=== PATIENT | female | born 1980 | race Caucasian/White ===

== ENCOUNTER 2020-02-10 09:37 | Outpatient (REF) | payer OTHER, SELFPAY ==
[2020-02-10 10:34] LABS: Estimated Average Glucose 126 mg/dL
[2020-02-10 11:47] LABS: Alanine Aminotransferase 22 U/L (0-31); Albumin Level 4.2 g/dL (3.5-5.0); Alkaline Phosphatase 54 U/L (39-117); Anion Gap 15 (12-20); Aspartate Amino Transferase 17 U/L (5-31); Bilirubin Total 0.4 mg/dL (0.0-1.0); Blood Urea Nitrogen 14 mg/dL (9-16); Carbon Dioxide 24 mmol/L (22-29); Chloride 102 mmol/L (96-108); Cholesterol 183 mg/dL; Estimated Glomerular Filt Rate > 60; Glucose Random 118 mg/dL (60-115); HDL Cholesterol 73 mg/dL; LDL Cholesterol Calculated 83 mg/dl; Potassium 4.4 mmol/l (3.3-5.1); Sodium 137 mmol/L (135-145); Triglycerides 138 mg/dL
== END 2020-02-10 09:38 | disposition home or self-care (01) ==
LOC: HO.LAB 09:37
PROVIDERS: Visit Provider Internal Medicine
DX: R79.89 Other specified abnormal findings of blood chemistry (principal)
CPT/HCPCS: 80053; 80061; 83036; 84443

== ENCOUNTER 2020-06-03 09:36 | Outpatient (REF) | payer OTHER, SELFPAY ==
[2020-06-03 10:29] LABS: MANUAL DIFF FLAG NO
[2020-06-03 10:43] LABS: Basophils Absolute Auto 0.1 X10*3/uL (0.0-0.2); Basophils Percent Auto 0.6 % (0-2); Eosinophils Absolute Auto 0.2 X10*3/uL (0.0-0.4); Eosinophils Percent Auto 2.2 % (0-4); Hematocrit 42.4 % (37-47); Hemoglobin 13.9 g/dl (12.0-16.0); Imm Gran Abs Auto 0.09 X10*3/uL (0.00-0.03); Imm Gran Pct Auto 0.8 % (0.0-0.4); Lymphocytes Absolute Auto 2.8 X10*3/uL (1.2-4.9); Lymphocytes Percent Auto 25.9 % (20-40); Mean Corpuscular HGB Conc 32.8 g/dl (31.0-35.0); Mean Corpuscular Hemoglobin 28.7 pg (27.0-33.0); Mean Corpuscular Volume 87.4 fL (80-98); Mean Platelet Volume 10.8 fL (9.4-12.3); Monocytes Absolute Auto 0.6 X10*3/uL (0.1-1.2); Monocytes Percent Auto 5.3 % (2-11); Neutrophils Absolute Auto 7.1 X10*3/uL (2.0-8.3); Neutrophils Percent Auto 65.2 % (45-73); Platelet Count 344 X10*3/uL (160-400); Red Blood Count 4.85 X10*6/uL (4.20-5.50); Red Cell Distribution Width 12.5 % (11.0-16.0); White Blood Count 10.9 X10*3/uL (4.8-10.8)
[2020-06-03 10:47] LABS: Estimated Average Glucose 143 mg/dL; Hemoglobin A1c % 6.6 %
[2020-06-03 11:15] LABS: Alanine Aminotransferase 23 U/L (0-31); Alkaline Phosphatase 61 U/L (39-117); Anion Gap 14 (12-20); Aspartate Amino Transferase 18 U/L (5-31); Bilirubin Total 0.4 mg/dL (0.0-1.0); Blood Urea Nitrogen 12 mg/dL (9-16); Carbon Dioxide 25 mmol/L (22-29); Chloride 100 mmol/L (96-108); Cholesterol 177 mg/dL; Estimated Glomerular Filt Rate > 60; Glucose Random 116 mg/dL (60-115); HDL Cholesterol 65 mg/dL; LDL Cholesterol Calculated 69 mg/dl; Potassium 4.4 mmol/L (3.3-5.1); Sodium 135 mmol/L (135-145); Total Protein 6.9 g/dL (6.5-8.0); Triglycerides 215 mg/dL
[2020-06-03 11:25] LABS: Thyroid Stimulating Hormone 0.84 uIU/mL (0.32-4.0)
[2020-06-03 11:26] LABS: Creatinine Urine 145.99 mg/dL
== END 2020-06-03 09:37 | disposition home or self-care (01) ==
LOC: HO.LAB 09:36
PROVIDERS: PCP Internal Medicine; Visit Provider Internal Medicine
DX: E11.9 Type 2 diabetes mellitus without complications (principal); G56.02 Carpal tunnel syndrome, left upper limb; J30.0 Vasomotor rhinitis; M25.512 Pain in left shoulder
CPT/HCPCS: 36415; 80053; 80061; 82043; 83036; 84443; 85025; 87086

== ENCOUNTER 2020-07-01 08:51 | Outpatient (REF) | payer OTHER, SELFPAY ==
--- NOTE | 2020-07-01 09:16 | EMG_ITS ---
HISTORY OF PRESENT ILLNESS: This is a 39-year-old woman with a history of diabetes and ADHD, who comes in with 4 month history of left upper extremity numbness and tingling intermittently and some pain. MEDICATIONS: List of medications not available. PHYSICAL EXAMINATION: On examination, she is alert and oriented with normal intellectual functions. Cranial nerves II through XII are normal. Muscle tone and strength are normal in all 4 extremities. No Tinel or Phalen sign. IMPRESSION: Rule out carpal tunnel syndrome, rule out cervical radiculopathy. Nerve conduction EMG study: Normal electrodiagnostic study of the left upper extremity with no evidence of carpal tunnel syndrome or nerve entrapment. Normal EMG of the left C5-T1 innervated muscles. MD EZEKIEL Cuenca/UBALDO / [id number]
== END 2020-07-01 08:52 | disposition home or self-care (01) ==
LOC: HO.NEURO 08:51
PROVIDERS: Visit Provider Internal Medicine
DX: G56.02 Carpal tunnel syndrome, left upper limb (principal)
CPT/HCPCS: 95885; 95910

== ENCOUNTER 2024-03-25 09:40 | Outpatient (REF) | payer OTHER, SELFPAY | END 2024-03-25 09:41 | disposition home or self-care (01) | LOC: HO.SH 09:40 | PROVIDERS: Visit Provider Nurse Practitioner Family | DX: Z01.118 Encounter for examination of ears and hearing with other abnormal findings (principal); H90.3 Sensorineural hearing loss, bilateral | CPT/HCPCS: 92557 ==

== ENCOUNTER 2024-10-03 14:20 | Outpatient (REF) | payer SELFPAY | END 2024-10-03 14:21 | disposition home or self-care (01) | LOC: HO.HAP 14:20 | PROVIDERS: Visit Provider Internal Medicine | DX: Z13.89 Encounter for screening for other disorder (principal) ==

== ENCOUNTER 2024-11-15 10:47 | Outpatient (REF) | payer SELFPAY ==
--- NOTE | 2024-11-15 12:05 | MHC.AU.HA3 ---
Hearing Instrument Follow-Up- Binaural Date of Visit: 11/15/24 Right Ear: Jw, Model, Color, Serial Number: Damion Wilkersoneo L70-R, gómez pink S#[id number] Grading Machine Operator Repair Warranty: 09/13/2027 Grading Machine Operator Loss and Damage Warranty: 09/13/2027 [facility] Service Plan: Battery Size: Rechargeable Embosser Operator/Slim Tube: #0 M Earmold/Dome/CShell/SlimTip:medium vented w/tails Type of Wax Guard: Cerustop Dispensed By: [facility] Date of Fittin08/26/24 Left Ear: Jw, Model, Color, Serial Number: Damion Wilkersoneo L70-R, gómez pink S#[id number] Grading Machine Operator Repair Warranty: 09/13/2027 Grading Machine Operator Loss and Damage Warranty: 09/13/2027 [facility] Service Plan: Battery Size: Rechargeable Embosser Operator/Slim Tube: #0 M Earmold/Dome/CShell/SlimTip: medium vented w/tails Type of Wax Guard: Cerustop Dispensed By: [facility] Date of Fittin08/26/24 Follow-Up Summary: Deidre reports problems with tomas, hearing aids not connecting. Found hearing aids not paired to phone. Re-paired and tested connection, tomas working now. Deidre notes trouble hearing some people but bothered by static when she increases volume. Increased gain slightly for lows and mids. Deidre reports improvement. Recommendations: Recommendations: Hearing instrument follow-up or maintenance as needed. Diagnosis Code(s): Primary Diagnosis: H90.3 Bilateral Sensorineural Hearing Loss Signature: Provider: Waldo Kramer, [facility]
== END 2024-11-15 10:48 | disposition home or self-care (01) ==
LOC: HO.HAP 10:47
PROVIDERS: Visit Provider Internal Medicine
DX: Z13.89 Encounter for screening for other disorder (principal)

== ENCOUNTER 2025-01-16 11:26 | Emergency (ER) | payer OTHER, SELFPAY ==
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
[2025-01-16 11:49] VITALS: BP 125/72; PULSE 110; RESP 18; TEMP 37; O2SAT 98; BMI 22.7
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
[2025-01-16 13:58] VITALS: BP 125/72; PULSE 110; RESP 18; TEMP 37; O2SAT 98
--- OUTSIDE RECORDS SUMMARY | 2025-01-16 15:10 | XMS_ITS | Clinical Summary ---
Author Organization [facility] Address [address] [place] [id number] Phone Care Team Providers Care Blending Tank Tender Helper Name Role Phone Misa Simons MD Primary Care Provide r Allergies Active Allergy Reactions Criticality Noted Date Comments Peanut 06/28/2012 Medications dexmethylphenida te HCl (FOCALIN ORAL) Take by mouth. Active trazodone HCl (TRAZODONE ORAL) Take by mouth. Active ALBUTEROL INHL Inhale into the lungs. Active loratadine/pseud oephedrine (LORATA-D ORAL) Take by mouth. Active montelukast sodium (SINGULAIR ORAL) Take by mouth. Active Social History Tobacco Use Types Packs/Day Years Used Date Smoking Tobacco: Never Smokeless Tobacco: Never Alcohol Use Standard Drinks/Week Comments Yes 0 (1 standard drink = 0.6 oz pur e alcohol) socially Education Answer Date Recorded Are you interested in more education? Not on nataliia e 08/12/2022 Are you concerned about learning? Not on file 08/12/2022 No 08/12/2022 No 08/12/2022 Digital Access Answer Date Recorded No 09/10/2022 No 09/10/2022 No 09/10/2022 Reliable internet access at home? Not on file 09/10/2022 Device with a working camera? Not on file Comments Unknown Sex and Gender Information Value Date Recorded Sex Assigned at Female 06/24/2020 3:14 PM EST Legal Sex Female 2:45 PM EST Gender Identity Female 06/24/2020 3:14 PM EST Sexual Orientation Choose not to disclose 2020 3:14 PM EST Last Filed Vital Signs Vital Sign Reading Time Taken Comments Blood Pressure 135/80 04/11/2021 2:35 PM EST Pulse 90 04/11/2021 2:35 PM EST Temperature 36.8 C (98.2 F) 04/11/2021 2:35 PM EST Respiratory Rate 18 04/11/2021 2:35 PM EST Oxygen Saturation 99% 04/11/2021 2:35 PM EST Inhaled Oxygen Concentration - - Weight 67.1 kg (148 lb) 04/11/2021 12:19 PM EST Height 165.1 cm (5' 5 ) 04/11/2021 12:19 PM EST Body Mass Index 24.63 04/11/2021 12:19 PM EST Plan of Treatment Health Maintenance Due Date Last Done Comments DEPRESSION SCREENING 1993 HEPATITIS C SCREENING 11/27/1999 HIV ONE-TIME SCREENING (18-65 YEARS) 11/27/1999 PAP SMEAR 2002 SMOKING STATUS SCREENING (Once After 26 Yrs) 11/27/2007 MAMMOGRAM 2021 INFLUENZA VACCINE (#1) 2024 , 02/09/2018, 02/13/2017, Additional history exists COVID-19 VACCINE ( season) 2024 07/09/2020, 06/19/2020, 05/22/2020 Adult Td,Tdap Booster 02/18/2031 02/18/2021, 013 PNEUMOCOCCAL VACCINES (0-49 years) Aged Out 03/18/2014 No longer eligible based on patient's age to complete this topic HEPATITIS A VACCINES Aged Out No long er eligible based on patient's age to complete this topic HIB VACCINES Aged Out No longer eligi ble based on patient's age to complete this topic MENINGOCOCCAL VACCINES (ACWY) Aged Out No longer eligible based on patient's age to complete this topic MENINGOCOCCAL VACCINES (B) Aged Out N o longer eligible based on patient's age to complete this topic Medical Devices Not on file Insurance CONNECTORCARE DIRECT CONNECTORCARE DIRECT CONNECTORCARE DIRECT CONNECTORCARE DIRECT CONNECTORCARE DIRECT CONNECTORCARE DIRECT CONNECTORCARE DIRECT CONNECTORCARE DIRECT CONNECTORCARE DIRECT Member Subscriber Plan / Payer ([facility] 04/17/2020-Present) Name:Deidre Angle Relation to Subscriber:Self Name:Deidre Angel Payer ID:[id number] (NA) Type:HMO Address: [address] [place] [address] Care Teams Blending Tank Tender Helper Relationship Specialty Start Date End Date Misa Simons MD [address] [place] [address] [phone] PCP - General Internal Medicine 04/11/21 Additional Source Comments The information contained in this document represents components of the legal health record. It is not the complete legal health record.[facility]
--- OUTSIDE RECORDS SUMMARY | 2025-01-16 15:11 | XMS_ITS | Data Portability ---
Author Organization ID - 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 I recommend the patient continue using her current hearing aids, as they are the appropriate treatment for her condition. Based on today's audiometric findings, I suggest she bring a copy of the hearing test to [facility] for potential adjustments to her hearing aids to optimize their output. Given the genetic component of her hearing loss, I advised the patient to consider hearing tests for her son and her sister's children to identify any early signs of hearing loss and facilitate timely intervention. I recommend scheduling a follow-up hearing test in one year to monitor any changes in her hearing and ensure her hearing aids remain appropriately calibrated. This test can be performed at our office or [facility], depending on her preference and insurance coverage. The patient was counseled on the importance of amplification technology and the limitations of current medical interventions in altering the progression of genetic hearing loss. She was encouraged to continue proactive management of her condition and to seek further information as needed. [email or web address] Not available 11/19/2024 12:18:27 Plan of Treatment Reminders Order Date Submit Date Provider Last Modified By Organization Details Last Modified Time Details Appointments Hearing Test 2025 09:00A M Hearing Test Not available Not available Not available Establish ed 15 2025 09:30A M ENEDINA ORNELAS PA-C Not available Not available Not available Lab None recorded. Referral None recorded. Procedures None recorded. Surgeries None recorded. Imaging None recorded. Medication Orders None recorded. Patient TargetsNo targets recorded. Patient Instructions Encounter Date Encounter Id Patient Instructions Last Modified By Organization Details Last Modified Time 11/19/2024 [id number] - Continue using current hearing aids. - Bring a copy of today's hearing test to [facility] for potential adjustments to hearing aids. - Consider hearing tests for her son and her sister's children to identify early signs of hearing loss. - Schedule a follow-up hearing test in one year to monitor changes and recalibrate hearing aids as needed. [email or web address] Not available 11/19/2024 12:18:27 Please note: Parts of this encounter note have been generated by AI based on audio conversation. Patient consent was required prior to utilizing this technology. Content review was required prior to finalizing the note. [email or web address] Not available 11/19/2024 12:18:27 Reason for Referral None Reported. Results Created Date Observation Date Name Description Value Unit Range Abnormal Flag Note LastModifiedBy Organization Detail LastModifiedTime 11/20/19 audio gram No observ ation record ed. BARCODE Not Available 2024 13:10:18 11/20/19 25 03/25/2024 audio gram No observ ation record ed. [email or web address] Not Available 08/2024 13:12:50 Result Notes None recorded. Problems Name Problem SNOMED Code Status Onset Date Resolution Date Notes Provider Name and Address Organization Details Recorded Time Sensorineural hearing loss of bilateral ears [id number] Active 2024 SHARRI LILLY MA, [facility] [address] [place] [address], [facility] [phone] , [facility] - [facility] 11:51:54 Problem Notes None recorded. Procedures Surgical History Date Name Laterality Status Provider Name and Address Organization Details Recorded Time 11/20/19 25 Air & Speech Audio with Tymps - 62374, 50718 & 64066 completed SHARRI LILLY MA, CCC-A [address] [facility],[address], [place], [address], [facility] - [facility] [place] 11/19/2024 11:52:15 11/20/19 25 OAE distortion product, limited - 41817 completed SHARRI LILLY MA, CCC-A [address] [facility] [place], [place], [address], [facility] - [facility] [place] 11/19/2024 11:52:31 appendectomy completed Ahmet Flores [facility] 11/19/2024 12:03:58 Imaging Results None recorded. Procedure Notes None recorded. Medical Equipment None Reported. Medications Name Sig Start Date Stop Date Status Note LastModified by Organization Details LastModified Time citalopram 40 mg tablet TAKE ONE TABLET EVERY DAY active Not Available Not Available No t Available trazodone 50 mg tablet TAKE ONE TABLET BY MOUTH AT BEDTIME NEEDED FOR SLEEP active Not Available Not Available No t Available cetirizine 10 mg tablet TAKE ONE TABLET BY MOUTH ONCE DAILY active Not Available Not Available No t Available prednisone 20 mg tablet TAKE TWO TABLETS BY MOUTH EVERY DAY FOR 5 DAYS active Not Available Not Available N ot Available meclizine 25 mg tablet TAKE ONE TABLET THREE TIMES DAILY NEEDED FOR DIZZINESS active Not Available Not Available No t Available Concerta 54 mg tablet,extend ed release TAKE ONE TABLET EVERY DAY active Not Available Not Available No t Available buspirone 10 mg tablet TAKE ONE TABLET TWICE DAILY active Not Available Not Available No t Available montelukast 10 mg tablet TAKE ONE TABLET EVERY DAY active Not Available Not Available No t Available hydroxyzine HCl 10 mg tablet TAKE ONE TABLET BY MOUTH THREE TIMES DAILY NEEDED active Not Available Not Available No t Available fluticasone propionate 50 mcg/actuation nasal spray,suspens ion INHALE ONE SPRAY IN EACH NOSTRIL TWICE DAILY active Not Available Not Available No t Available metformin ER 500 mg tablet,extend ed release 24 hr TAKE FOUR TABLETS DAILY AT BEDTIME active Not Available Not Available No t Available bupropion HCl XL 300 mg 24 hr tablet, extended release TAKE ONE TABLET EVERY DAY active Not Available Not Available No t Available budesonide-fo rmoterol HFA 160 mcg-4.5 mcg/actuation aerosol inhaler INHALE TWO PUFFS TWICE DAILY, RINSE MOUTH AFTER USE active Not Available Not Available No t Available Isibloom 0.15 mg-0.03 mg tablet TAKE ONE TABLET DAILY active Not Available Not Available No t Available Rybelsus 3 mg tablet TAKE ONE TABLET EVERY DAY active Not Available Not Available No t Available FreeStyle German 3 Sensor device USE DIRECTED AND CHANGE EVERY 14 DAYS active Not Available Not Available No t Available Vitals Date Recorded Body height Body mass index (BMI) Body weight Provider Name and Address Organization Details Last Updated DateTime 11/19/2024 152.4 cm 29.3 kg/m2 69326.86 g Ahmet Flores ID - [facility] 11/19/2024 12:03:19 Social History None recorded. Functional Status None recorded. Mental Status None recorded. Family History Nothing Reported Notes:- Mother: Hearing loss , did not use hearing aids. - Sister: Early-onset hearing loss approximately ten years ago. Medical History Condition Response Anxiety Y Depression Y Gynecological HistoryNo gynecological history recorded. Obstetrics History GPAL:G 0 P 0 0 0 0 Past Encounters Encounter ID Performer Location Encounter Start Date Encounter Closed Date Diagnosis/Indication Diagnosis SNOMED-CT Code Diagnosis ICD10 Code Diagnosis IMO Codes Diagnosis Note [id number] LEVI GARCIA MD [facility] [address] [address] 11/19/2024 10:49:41 11/19/2024 11:59:09 Sensorineural hearing loss of bilateral ears 167400955 H90.3 [id number] Audiologic al evaluation results: Right & Left ears Mild SNHL rising to normal hearing with excellent word recognitio n. Left ear: Normal hearing with excellent word recognitio n. Tympanomet ry: Right Ear:Type A Left Ear:Type A Distortion Product Otoacousti c Emission Testing Results: Right Ear:Normal at 1.5, 2, 3, 4, 5, 6, 7; absent at 8kHz Left Ear:Normal at 1.5, 2, 3, 4, 5, 6, 7; absent at 8kHzThe presence of a normal otoacousti c emission is consistent with normal outer hair cell function at the test frequency. Family his tory of hearing loss [id number] Z82.2 [id number] Health Concerns Section Related Observation LastModified by Organization Detai ls LastModified Time None Recorded Concern Status LastModified by Organization Details LastModified Time None Recorded Advance Directives Directive None Recorded Payers Insurance Date Sequence Insurance Name Policy Number Policy Santos Covered Member ID Santos Member ID Guarantor Name 11/19/2024 1 [employer] [facility] [id number] Deidre Angel [id number] Deidre Angel Notes Date Note Type Note Provider Name and Address Organization Details Recorded Time 11/19/2024 text/html Deidre Angel is a 43-year-old female who presents for evaluation of hearing loss. She reports noticing hearing loss approximately five years ago, around the time of COVID. She obtained hearing aids last winter and has been working with [facility]. She has a family history of hearing loss, including her mother, who had hearing loss but did not use hearing aids, and her sister, who experienced early-onset hearing loss approximately ten years ago. The patient has undergone prior hearing tests at [facility], which attributed her symptoms to ADD at the time. She reports difficulty hearing lower-pitched tones, which affects her ability to understand men's voices and causes challenges at work. She has one son, aged 22, and expresses concern about the potential genetic component of her hearing loss and its implications for future generations. LEVI GARCIA MD [address] [place] [address], [phone], [facility] 11/19/2024 12:19:59 OBGyn Episode No OBEpisode recorded.
== END 2025-01-16 13:59 | disposition home or self-care (01) ==
PROVIDERS: Emergency Provider Emergency Medicine; PCP Nurse Practitioner Family
DX: M54.12 Radiculopathy, cervical region (principal); M54.16 Radiculopathy, lumbar region; V49.88XA Car occupant (driver) (passenger) injured in other specified transport accidents, initial encounter; Y93.89 Activity, other specified; Y92.488 Other paved roadways as the place of occurrence of the external cause; Y99.8 Other external cause status
CPT/HCPCS: 70450; 72100; 72125; 99282; 99284

== ENCOUNTER → 2025-01-16 11:52 | Outpatient (BNV) | payer SELFPAY | PROVIDERS: PCP Nurse Practitioner Family; Visit Provider Radiology Diagnostic Radiology | DX: M43.12 Spondylolisthesis, cervical region (principal); M47.812 Spondylosis without myelopathy or radiculopathy, cervical region; G31.9 Degenerative disease of nervous system, unspecified; M54.9 Dorsalgia, unspecified | CPT/HCPCS: 70450; 72100; 72125 ==